=== PATIENT | male | born 1975 ===

== ENCOUNTER 2017-03-24 07:52 | Emergency (ER) | payer OTHER, BC ==
[2017-03-24 08:04] VITALS: BMI 24.2
[2017-03-24 08:10] VITALS: BP 145/85; PULSE 74; RESP 17; TEMP 98.2; O2SAT 100
--- NOTE | 2017-03-24 09:06 | RAD ---
HISTORY: rib/back pain COMPARISON: No prior. TECHNIQUE: Chest PA and lateral FINDINGS: LUNGS: No active pulmonary disease. PLEURA: No significant pleural effusion identified. No pneumothorax apparent. CARDIOVASCULAR: Normal. OSSEOUS STRUCTURES: No significant abnormalities. VISUALIZED UPPER ABDOMEN: Normal. OTHER FINDINGS: None. IMPRESSION: No active disease.
--- NOTE | 2017-03-24 09:53 | C.PDOC ---
History Of Present Illness 41 year old male who presents to the ER with a complaint of upper and lower back pain for the past few days. Patient states he recently had been moving heavy items at work with repetitive movement. Patient states he took motrin at home with no relief; denies weakness/numbness of the lower extremities, dysuria , hematuria, or incontinence. Time Seen by Provider: 03/24/17 08:13 Chief Complaint (Nursing): Back Pain History Per: Patient History/Exam Limitations: no limitations Onset/Duration Of Symptoms: Days Current Symptoms Are (Timing): Still Present Quality Of Discomfort: Unable To Describe Previous Symptoms: None Associated Symptoms: None Exacerbating Factor(s): Nothing Recent travel outside of the [place]: No Past Medical History Reviewed: Historical Data, Nursing Documentation, Vital Signs Vital Signs: Last Vital Signs Temp 98.2 F 03/24/17 08:04 Pulse 74 03/24/17 08:04 Resp 17 03/24/17 08:04 BP 145/85 03/24/17 08:04 Pulse Ox 100 03/24/17 11:24 - Medical History PMH: Hypercholesterolemia Surgical History: No Surg Hx Family History: States: Unknown Family Hx - Social History Hx Alcohol Use: Yes Hx Substance Use: No - Immunization History Hx Tetanus Toxoid Vaccination: No Hx Influenza Vaccination: No Hx Pneumococcal Vaccination: No Review Of Systems Genitourinary: Negative for: Dysuria, Incontinence, Hematuria Musculoskeletal: Positive for: Back Pain Neurological: Negative for: Weakness, Numbness Physical Exam - Physical Exam Appears: Non-toxic Skin: Normal Color, Warm, Dry Head: Atraumatic, Normacephalic Oral Mucosa: Moist Neck: Normal, No Midline Cervical Tenderness, No Paracervical Tenderness, Supple Back: No Vertebral Tenderness, Paraspinal Tenderness (Lumbar, Thoracic) Extremity: Normal ROM (x4), No Tenderness Neurological/Psych: Oriented x3, Normal Speech, Normal Cognition ED Course And Treatment O2 Sat by Pulse Oximetry: 100 (Room air) Pulse Ox Interpretation: Normal - Radiology CXR: Viewed By Me, Read By Radiologist CXR Interpretation: Yes: No Acute Disease - Other Rad CXR X-Ray: Viewed By Me, Read By Radiologist Interpretation: Accession No. : [id number]. Patient Name / ID : MAKENZIE Queen / [id number]. Exam Date : 03/24/2017 08:44:49 ( Approved ). Study Comment : Sex / Age : M / 41Y. Creator : Mamadou Womack MD. Dictator : Mamadou Womack MD. Tool Programmer : Supervisor Spinning : Mamadou Womack MD. Approver2 : Report Date : 03/24/2017 09:04:30. My Comment : . HISTORY: rib/back pain. COMPARISON: No prior. TECHNIQUE: Chest PA and lateral. FINDINGS: LUNGS: No active pulmonary disease. PLEURA: No significant pleural effusion identified. No pneumothorax apparent. CARDIOVASCULAR: Normal. OSSEOUS STRUCTURES: No significant abnormalities. VISUALIZED UPPER ABDOMEN: Normal. OTHER FINDINGS: None. IMPRESSION: No active disease. LS spine xray X-Ray: Viewed By Me, Read By Radiologist Interpretation: Accession No. : [id number]. Patient Name / ID : MAKENZIE Queen / [id number]. Exam Date : 03/24/2017 08:44:59 ( Approved ). Study Comment : Sex / Age : M / 41Y. Creator : MARIIA ASHFORD. Dictator : Homar Holman MD. Tool Programmer : Supervisor Spinning : Homar Holman MD. Approver2 : Report Date : 03/24/2017 09:13:10. My Comment : . Lumbar spine two views. History: Back pain. Comparison: None available. Findings: Minimal retrolisthesis of L4 on L5. Few inferior endplate concavities of the L3, L4, and L5 vertebral bodies. No evidence of acute displaced fracture. Impression: Degenerative changes. If pain persists, consider MRI Progress Note: CXR and LS spine x-ray ordered. Motrin administered. Disposition - Disposition Disposition: HOME/ ROUTINE Disposition Time: 09:51 Condition: STABLE Additional Instructions: Follow up with your PMD within 1-2 days. Return to ED if feel worse. Prescriptions: Naproxen [Naprosyn] 1 tab PO BID PRN #25 tab PRN Reason: Pain oxyCODONE/Acetaminophen [Percocet 5/325 mg Tab] 1 tab PO QID PRN #20 tab PRN Reason: Pain Instructions: Thoracic Back Strain (ED) Forms: Work Excuse Print Language: NIGERIEN - Clinical Impression Clinical Impression: Thoracic back sprain, Low back strain - Scribe Statement The provider has reviewed the documentation as recorded by the Scribsujit Torres All medical record entries made by the Aspenibsujti were at my direction and personally dictated by me. I have reviewed the chart and agree that the record accurately reflects my personal performance of the history, physical exam, medical decision making, and the department course for this patient. I have also personally directed, reviewed, and agree with the discharge instructions and disposition.
--- NOTE | 2017-03-24 11:51 | RAD ---
Lumbar spine two views History: Back pain. Comparison: None available. Findings: Minimal retrolisthesis of L4 on L5. Few inferior endplate concavities of the L3, L4, and L5 vertebral bodies. No evidence of acute displaced fracture. Impression: Degenerative changes. If pain persists, consider MRI
== END 2017-03-24 11:00 | disposition home or self-care (01) ==
LOC: C.ER 07:52
DX: S23.3XXA Sprain of ligaments of thoracic spine, initial encounter (principal); S39.012A Strain of muscle, fascia and tendon of lower back, initial encounter; X50.3XXA Overexertion from repetitive movements, initial encounter; Y92.89 Other specified places as the place of occurrence of the external cause; Y99.0 Civilian activity done for income or pay

== ENCOUNTER 2017-04-30 08:14 | Emergency (ER) | payer BC ==
[2017-04-30 08:15] VITALS: BMI 24.2
[2017-04-30] MEDS ORDERED: Sodium Chloride 0.9% 1,000 ML IV ONE ×2 (08:31→08:33)
--- NOTE | 2017-04-30 08:53 | C.PDOC ---
History Of Present Illness 41 y/o male c/o generalized weakness for the past week. Patient also c/o some blurry vision, burning urination, increased thirst, and increased urination. Patient fingerstick in 400's on arrival. Denies any known past medical history. Reports (+) smoker, occasional etoh use. Otherwise, denies fever, chills, chest pain, SOB, nausea, vomiting, diarrhea, or other associated symptoms. Time Seen by Provider: 04/30/17 08:20 Chief Complaint (Nursing): Weakness/Neurological Deficit History Per: Patient History/Exam Limitations: no limitations Onset/Duration Of Symptoms: Days Current Symptoms Are (Timing): Still Present Fall Associated With With Symptoms: No Recent travel outside of the [place]: No Past Medical History Reviewed: Historical Data, Nursing Documentation, Vital Signs Vital Signs: Last Vital Signs Temp 97.4 F L 04/30/17 11:05 Pulse 65 04/30/17 11:05 Resp 14 04/30/17 11:05 BP 123/84 04/30/17 11:05 Pulse Ox 97 04/30/17 12:15 - Medical History PMH: Hypercholesterolemia Family History: States: Unknown Family Hx - Social History Hx Alcohol Use: Yes Hx Substance Use: No - Immunization History Hx Tetanus Toxoid Vaccination: No Hx Influenza Vaccination: No Hx Pneumococcal Vaccination: No Review Of Systems Except As Marked, All Systems Reviewed And Found Negative. Constitutional: Positive for: Weakness, Other (increased thirst). Negative for : Fever, Chills Eyes: Positive for: Other (blurry vision) ENT: Negative for: Throat Pain Cardiovascular: Negative for: Chest Pain, Palpitations Respiratory: Negative for: Shortness of Breath Gastrointestinal: Negative for: Nausea, Vomiting, Abdominal Pain Genitourinary: Positive for: Dysuria, Other (polyuria) Skin: Negative for: Rash Neurological: Negative for: Headache, Dizziness Physical Exam - Physical Exam Appears: Non-toxic, No Acute Distress Skin: Normal Color, Warm, Dry Head: Atraumatic, Normacephalic Eye(s): bilateral: Normal Inspection, PERRL, EOMI Ear(s): Bilateral: Normal Nose: Normal Oral Mucosa: Moist Throat: Normal Neck: Supple Chest: Symmetrical Cardiovascular: Rhythm Regular Respiratory: Normal Breath Sounds, No Rales, No Rhonchi, No Wheezing Gastrointestinal/Abdominal: Soft, No Tenderness, No Guarding, No Rebound Back: Normal Inspection Extremity: Normal ROM, Capillary Refill (< 2 sec.) Neurological/Psych: Oriented x3, Normal Speech, Normal Cognition ED Course And Treatment - Laboratory Results Result Diagrams: 04/30/17 08:56 04/30/17 08:56 Lab Interpretation: Abnormal ECG: Interpreted By Me ECG Rhythm: Sinus Rhythm ECG Interpretation: No Acute Changes Rate From EC O2 Sat by Pulse Oximetry: 97 (RA) Pulse Ox Interpretation: Normal Progress Note: VBG, EKG, bloodwork ordered. IV fluids given. On reassessment, patient is resting comfortably, and is in no acute distress. Patient instructed to follow up with clinic/PMD within 1-2 days. Disposition Counseled Patient/Family Regarding: Studies Performed, Diagnosis, Need For Followup, Rx Given - Disposition Referrals: [facility] [Outside] [facility] [Outside] Disposition: HOME/ ROUTINE Disposition Time: 11:00 Condition: IMPROVED Additional Instructions: Follow up with clinic for further evaluation return to ED if any increase symptoms take medications as directed Prescriptions: metFORMIN [glucOPHAGE] 500 mg PO BID #30 tab Instructions: Diabetes Mellitus Type 2 in Adults (ED), Diabetic Hyperglycemia ( ED) Forms: [employer] (Austrian) Print Language: JAPANESE - POA Present On Arrival: None - Clinical Impression Clinical Impression: New onset type 2 diabetes mellitus - PA / [employer] / Resident Statement MD/DO has reviewed & agrees with the documentation as recorded. - Scribe Statement The provider has reviewed the documentation as recorded by the Scribe SM All medical record entries made by the Scribe were at my direction and personally dictated by me. I have reviewed the chart and agree that the record accurately reflects my personal performance of the history, physical exam, medical decision making, and the department course for this patient. I have also personally directed, reviewed, and agree with the discharge instructions and disposition.
[2017-04-30 09:03] LABS: RBC URINE 1 /hpf (0-3); URINE BILIRUBIN NEGATIVE (NEGATIVE); URINE BLOOD NEGATIVE (NEGATIVE); URINE COLOR Straw (YELLOW); URINE GLUCOSE (UA) 3+ mg/dL (Normal); URINE KETONE NEGATIVE (NEGATIVE); URINE LEUKOCYTE ESTERASE NEG Leu/uL (Negative); URINE PROTEIN NEGATIVE (NEGATIVE); URINE UROBILINOGEN NORMAL mg/dL (0.2-1.0); WBC URINE 1 /hpf (0-5)
[2017-04-30 09:05] LABS: BASO % 0.4 % (0.0-2.0); EOS # 0.3 K/uL (0.0-0.7); EOS % 4.5 % (0.0-4.0); HEMATOCRIT 47.2 % (35.0-51.0); LYMPH # 3.4 K/uL (1.0-4.3); MEAN CORPUSCULAR HEMOGLOBIN 29.8 pg (27.0-31.0); MEAN CORPUSCULAR HGB CONC 33.1 g/dL (33.0-37.0); MEAN PLATELET VOLUME 9.6 fL (7.2-11.7); MONO # 0.9 K/uL (0.0-0.8); MONO % 12.4 % (0.0-10.0); NRBC % 0.1 % (0.0-2.0); RED CELL DISTRIBUTION WIDTH 12.4 % (11.5-14.5)
[2017-04-30 09:21] LABS: VENOUS BLOOD GAS BASE EXCESS 0.2 mmol/L (0.0-2.0); VENOUS BLOOD GAS PCO2 51 mmHg (40-60); VENOUS BLOOD PH 7.33 (7.32-7.43)
[2017-04-30 10:12] LABS: CHLORIDE 96 mmol/L (98-107); SODIUM 134 mmol/L (132-148)
[2017-04-30 10:13] LABS: POTASSIUM 4.4 mmol/L (3.6-5.2)
[2017-04-30 10:15] LABS: ALB/GLOB RATIO 1.2 (1.0-2.1); ALKALINE PHOSPHATASE 221 U/L (38-126); AST/SGOT 74 U/L (17-59); BILIRUBIN,TOTAL 0.7 mg/dL (0.2-1.3); BLOOD UREA NITROGEN 14 mg/dL (9-20); CARBON DIOXIDE 25 mmol/L (22-30); GFR AFRICAN-AMERICAN > 60; TOTAL PROTEIN 7.6 g/dL (6.3-8.3)
[2017-04-30 10:16] LABS: ALT/SGPT 135 U/L (21-72)
[2017-04-30 10:19] LABS: GLUCOSE,RANDOM 417 mg/dL (75-110)
[2017-04-30] MEDS ORDERED: Sodium Chloride 0.9% 1,000 ML ONE (10:38)
[2017-04-30 11:09] VITALS: BP 123/84; PULSE 65; RESP 14; TEMP 97.4
[2017-04-30 11:21] VITALS: O2SAT 97
--- NOTE | 2017-05-06 00:02 | CARD ---
APPROVED REPORT EKG Measurement Heart [id number] <Conclusion> Normal sinus rhythm Early repolarization Normal ECG
== END 2017-04-30 11:28 | disposition home or self-care (01) ==
LOC: C.ER 08:14
DX: E11.9 Type 2 diabetes mellitus without complications (principal)
CPT/HCPCS: 80053; 81001; 82009; 82803; 82948; 85025; 96360; 96361; 99285; J7040

== ENCOUNTER 2017-06-09 13:22 | Emergency (ER) | payer BC ==
[2017-06-09 13:22] VITALS: BMI 24.2
[2017-06-09 14:14] VITALS: RESP 18; O2SAT 99
[2017-06-09] MEDS ORDERED: Sodium Chloride 0.9% 1,000 ML IV ONE (14:47)
--- NOTE | 2017-06-09 15:21 | C.PDOC ---
History Of Present Illness 42 yr old male w/recent hx of NIDDM sent by PMD to the ER for further evaluation of hyperglycemia noted in office. Patient states she feels weak sometimes, tired. Otherwise, patient denies fever, chills, headache, dizziness, visual changes, focal deficits, neck pain, chest pain, SOB, palpitation, diaphoresis, nausea, vomiting, abdominal pain, back pain, UTI sx. Ambulate to ED for evaluation, not in any apparent distress. Time Seen by Provider: 06/09/17 14:32 Chief Complaint (Nursing): High Blood Sugar History Per: Patient History/Exam Limitations: no limitations Onset/Duration Of Symptoms: Persistent Past Medical History Reviewed: Historical Data, Nursing Documentation, Vital Signs Vital Signs: Last Vital Signs Temp 98.3 F 06/09/17 17:05 Pulse 68 06/09/17 17:05 Resp 18 06/09/17 13:59 BP 116/58 L 06/09/17 17:05 Pulse Ox 99 06/09/17 17:05 - Medical History PMH: Diabetes, Hypercholesterolemia Surgical History: No Surg Hx Family History: States: No Known Family Hx - Social History Hx Tobacco Use: Yes Hx Alcohol Use: Yes Hx Substance Use: No - Immunization History Hx Tetanus Toxoid Vaccination: No Hx Influenza Vaccination: No Hx Pneumococcal Vaccination: No Review Of Systems Except As Marked, All Systems Reviewed And Found Negative. Constitutional: Negative for: Fever, Chills Cardiovascular: Negative for: Chest Pain Respiratory: Negative for: Shortness of Breath Gastrointestinal: Negative for: Nausea, Vomiting, Abdominal Pain Neurological: Negative for: Headache, Dizziness Physical Exam - Physical Exam Appears: Well, Non-toxic, No Acute Distress Skin: Warm, Dry, No Rash Head: Normacephalic Eye(s): bilateral: PERRL Nose: No Flaring, No Discharge Oral Mucosa: Moist Tongue: Normal Appearing Throat: No Erythema, No Drooling Neck: Supple Cardiovascular: Rhythm Regular, No Friction Rub, No Murmur, No JVD, Other ((-) carotid bruits) Respiratory: No Decreased Breath Sounds, No Accessory Muscle Use, No Rales, No Rhonchi, No Stridor, No Wheezing Gastrointestinal/Abdominal: Soft, No Tenderness, No Distention, No Guarding, No Rebound Back: No CVA Tenderness Extremity: Normal ROM, No Pedal Edema, No Swelling Neurological/Psych: Oriented x3, Normal Speech, Normal Motor, Normal Sensation, Normal Reflexes ED Course And Treatment - Laboratory Results Result Diagrams: 06/09/17 15:18 06/09/17 15:18 Lab Interpretation: No Acute Changes ECG: Interpreted By Me, Viewed By Me (and ED attending) ECG Interpretation: Abnormal Interpretation Of ECG: SR@79/min, NAD, occasional PVCs, early depolarization. Compre to old EKG from, PVCs are new findings, otherwise no new changes. O2 Sat by Pulse Oximetry: 99 (RA) Pulse Ox Interpretation: Normal Progress Note: On re-eval, pt reports, moderate improvement in sx, " feels better", pt is afebrile, hemodynamicaly stable. Non-toxic. PulseOX 99% RA. Neck: Supple, (-) JVD, (-) carotid bruits. Lungs: CTA B/L, BS equal B/L. CVS: (+)S1S2, reg. Abd: benign, (-) guarding, (-) rebound. Back: (-) CVA tenderness. Case discussed with ED attending, Diagnostics and EKG review,. Mild hyperglycemia noted, ketones negative, AG12,. discharge with outpt f/u recommend. Results review and discussed with pt. Pt understand and agrees with plan, will be F/U with PMD. Medical Decision Making Medical Decision Making: PLAN: * EKG * VBG * CBC * CMP * Urinalysis Disposition Counseled Patient/Family Regarding: Diagnosis, Need For Followup - Disposition Referrals: Sher Melo MD [Staff Provider] - Disposition: HOME/ ROUTINE Disposition Time: 17:32 Condition: STABLE Additional Instructions: TAKE MEDICATION PRESCRIBED FOR DIABETES DIET CONTROL FOLLOW UP WITH PMD, CARDIOLOGY IN 1-2 DAYS FOR RE-EVALUATION. RETURN TO ED IF ANY WORSENING OR NEW CHANGES. Instructions: Diabetic Hyperglycemia (ED), How to Check Your Blood Sugar (ED) Forms: [employer] (Colombian) Print Language: AZERI - Clinical Impression Clinical Impression: Hyperglycemia, PVCs (premature ventricular contractions) - PA / AUTOMOTIVE BRAKE ADJUSTER / Resident Statement MD/DO has reviewed & agrees with the documentation as recorded. - Scribe Statement The provider has reviewed the documentation as recorded by the Scribe Leticia Oates All medical record entries made by the Scribe were at my direction and personally dictated by me. I have reviewed the chart and agree that the record accurately reflects my personal performance of the history, physical exam, medical decision making, and the department course for this patient. I have also personally directed, reviewed, and agree with the discharge instructions and disposition.
[2017-06-09 15:23] LABS: BASO % 0.8 % (0.0-2.0); EOS # 0.3 K/uL (0.0-0.7); EOS % 3.9 % (0.0-4.0); HEMATOCRIT 42.9 % (35.0-51.0); LYMPH # 3.3 K/uL (1.0-4.3); MEAN CELL VOLUME 91.1 fL (80.0-94.0); MEAN CORPUSCULAR HEMOGLOBIN 30.8 pg (27.0-31.0); MEAN CORPUSCULAR HGB CONC 33.9 g/dL (33.0-37.0); MEAN PLATELET VOLUME 8.3 fL (7.2-11.7); MONO # 0.7 K/uL (0.0-0.8); MONO % 10.6 % (0.0-10.0); NRBC % 0.1 % (0.0-2.0); RED CELL DISTRIBUTION WIDTH 13.1 % (11.5-14.5); WHITE BLOOD COUNT 6.6 K/uL (4.8-10.8)
[2017-06-09] MEDS ORDERED: Sodium Chloride 0.9% 1,000 ML ONE (15:24)
[2017-06-09 15:27] LABS: RBC URINE < 1 /hpf (0-3); URINE BILIRUBIN NEGATIVE (NEGATIVE); URINE BLOOD NEGATIVE (NEGATIVE); URINE COLOR Yellow (YELLOW); URINE GLUCOSE (UA) 3+ mg/dL (Normal); URINE KETONE NEGATIVE (NEGATIVE); URINE LEUKOCYTE ESTERASE NEG Leu/uL (Negative); URINE PROTEIN NEGATIVE (NEGATIVE); URINE UROBILINOGEN NORMAL mg/dL (0.2-1.0); WBC URINE < 1 /hpf (0-5)
[2017-06-09 15:32] LABS: DRAW SITE VENOUS; VENOUS BLOOD GAS BASE EXCESS 6.3 mmol/L (0.0-2.0); VENOUS BLOOD GAS PCO2 56 mmHg (40-60); VENOUS BLOOD PH 7.38 (7.32-7.43)
[2017-06-09 15:39] LABS: CHLORIDE 100 mmol/L (98-107); SODIUM 141 mmol/L (132-148)
[2017-06-09 15:40] LABS: POTASSIUM 4.3 mmol/L (3.6-5.2)
[2017-06-09 15:42] LABS: ALB/GLOB RATIO 1.4 (1.0-2.1); ALKALINE PHOSPHATASE 163 U/L (38-126); ALT/SGPT 104 U/L (21-72); AST/SGOT 40 U/L (17-59); BILIRUBIN,TOTAL 1.2 mg/dL (0.2-1.3); BLOOD UREA NITROGEN 10 mg/dL (9-20); CARBON DIOXIDE 29 mmol/L (22-30); GFR AFRICAN-AMERICAN > 60; TOTAL PROTEIN 7.2 g/dL (6.3-8.3)
[2017-06-09 15:43] LABS: CALCIUM 9.9 mg/dl (8.6-10.4); GLUCOSE,RANDOM 279 mg/dL (75-110)
[2017-06-09 17:06] VITALS: BP 116/58; PULSE 68; TEMP 98.3
== END 2017-06-09 17:58 | disposition home or self-care (01) ==
LOC: C.ER 13:22
DX: E11.65 Type 2 diabetes mellitus with hyperglycemia (principal); I49.3 Ventricular premature depolarization
CPT/HCPCS: 80053; 81001; 82009; 82803; 82948; 85025; 96360; 99285; J7040